=== PATIENT | male | born 1995 | race Asian ===

== ENCOUNTER 2018-05-15 07:49 | Outpatient (CLI) | payer OTHER ==
[2018-05-15 08:51] LABS: HEMOGLOBIN 15.4 g/dL (14.0-18.0); MEAN CORPUSCULAR HEMOGLOBIN 32 pg (27-31); RED CELL DISTRIBUTION WIDTH 10.9 % (9.0-15.0)
[2018-05-15 08:57] LABS: BILIRUBIN,URINE NEGATIVE (NEGATIVE); BLOOD, URINE NEGATIVE (NEGATIVE); CLARITY/URINE CLEAR (CLEAR); COLOR,URINE YELLOW (YELLOW); GLUCOSE,URINE NEGATIVE (NEGATIVE); KETONES,URINE NEGATIVE (NEGATIVE); LEUKOCYTE ESTERASE ,URINE NEGATIVE (NEGATIVE); NITRITE, URINE NEGATIVE (NEGATIVE); PROTEIN URINE NEGATIVE (NEGATIVE); UROBILINOGEN,URINE 0.2 (0.2-1.0)
[2018-05-15 09:00] LABS: BASOPHILS # (AUTO) 0.1 K/uL (0.0-0.2); BASOPHILS % (AUTO) 1.4 % (0.0-2.0); EOSINOPHILS # (AUTO) 0.4 K/uL (0.0-0.4); EOSINOPHILS % (AUTO) 5.9 % (0.0-4.0); HEMATOCRIT 43.9 % (36-54); LYMPHOCYTES # (AUTO) 2.5 K/uL (1.0-5.5); LYMPHOCYTES % (AUTO) 42.3 % (20.5-51.5); MEAN CORPUSCULAR HGB CONC 35 % (32-36); MEAN CORPUSCULAR VOLUME 91 fL (79.0-98.0); MONOCYTES # (AUTO) 0.7 K/uL (0.0-1.0); MONOCYTES % (AUTO) 12.2 % (1.7-9.3); NEUTROPHILS # (AUTO) 2.3 K/uL (1.8-7.7); NEUTROPHILS % (AUTO) 38.2 % (40.0-70.0); PLATELET COUNT (AUTO) 377 K/uL (130-430); RED BLOOD CELL COUNT(AUTO) 4.84 MIL/uL (4.2-6.2)
[2018-05-15 09:03] LABS: CALCIUM 9.7 mg/dL (8.4-11.0); CREATININE 0.97 mg/dL (0.55-1.30); POTASSIUM 4.3 mmol/L (3.5-5.1)
[2018-05-15 09:19] LABS: TOTAL BILIRUBIN 0.9 mg/dL (0.0-1.0)
[2018-05-15 09:20] LABS: ALBUMIN 4.7 g/dL (3.4-4.8); THYROID STIMULATING HORMONE 0.41 uIu/mL (0.36-3.74); URIC ACID 7.5 mg/dL (2.4-7.0)
[2018-05-16 06:06] LABS: HEMOGLOBIN A1C 5.6 % (4.8-5.6)
== END 2018-05-15 20:06 | disposition home or self-care (01) ==
LOC: SRD 07:49
PROVIDERS: ATTEND Internal Medicine
DX: M54.5 Low back pain (principal)
CPT/HCPCS: 36415; 72110; 80053; 80061; 81003; 82306; 82607; 83036; 84443-TC; 84550-TC; 85025

== ENCOUNTER 2018-05-19 07:54 | Outpatient (CLI) | payer OTHER | END 2018-05-19 19:36 | disposition home or self-care (01) | LOC: SUS 07:54 | PROVIDERS: ATTEND Internal Medicine | DX: N20.0 Calculus of kidney (principal) | CPT/HCPCS: 76700-TC ==

== ENCOUNTER 2018-08-10 13:16 | Outpatient (CLI) | payer OTHER ==
[2018-08-10 14:27] LABS: CALCIUM 9.8 mg/dL (8.4-11.0); CREATININE 0.91 mg/dL (0.55-1.30); POTASSIUM 4.5 mmol/L (3.5-5.1); URIC ACID 5.9 mg/dL (2.4-7.0)
== END 2018-08-10 18:58 | disposition home or self-care (01) ==
LOC: SLB 13:16
PROVIDERS: ATTEND Internal Medicine
DX: E79.0 Hyperuricemia without signs of inflammatory arthritis and tophaceous disease (principal)
CPT/HCPCS: 36415; 80048; 84550-TC